=== PATIENT | male | born 1945 | race Caucasian/White ===

== ENCOUNTER 2022-05-15 21:58 | Emergency (ER) | payer MEDICARE, OTHER ==
[~2022-05-15] VITALS: Ht 177 cm; Wt 95.0 kg
--- NOTE | 2022-05-15 22:06 | ED General ---
General Chief Complaint: Abdominal/GI Problems Stated Complaint: SYNCOPE Source of Information: Patient, EMS History of Present Illness Date Seen by Provider: May 15, 2022 Time Seen by Provider: 21:58 Initial Comments 76-year-old male presenting with EMS from home. He had eaten at [employer] and after getting home the had abdominal pain with nausea and vomiting. He had a vasovagal response when he was in the bathroom and feels like he had a syncopal episode. He is diaphoretic and having continued nausea and vomiting. He states he has had prior abdominal surgery for an appendectomy. He still has gallbladder. He denies having symptoms like this previously. He was given IV fluid and Zofran by EMS but was still vomiting on arrival to the ED. He reports having Covid a month ago but was over all of his symptoms. Timing/Duration: 1/2 Hour Severity: Severe Modifying Factors: worse with Eating; improves with Medication; worse with Movement Associated Systoms: No Chest Pain, No Cough; Diaphoresis; No Fever/Chills, No Headaches, No Loss of Appetite; Nausea/Vomiting; No Seizure, No Shortness of Air; Syncope (vasovagal response while vomiting) Allergies and Home Medications Allergies Coded Allergies: codeine (Verified Allergy, Unknown, 05/15/22) morphine (Verified Allergy, Unknown, 05/15/22) Patient Home Medication List Home Medication List Reviewed: Yes Review of Systems Review of Systems Constitutional: No chills; diaphoresis, dizziness; No fever; malaise, weakness EENTM: no symptoms reported Respiratory: no symptoms reported Cardiovascular: no symptoms reported Gastrointestinal: see HPI Genitourinary: no symptoms reported Musculoskeletal: no symptoms reported Skin: no symptoms reported Psychiatric/Neurological: See HPI Hematologic/Lymphatic: Denies Easy Bleeding, Denies Easy Bruising Immunological/Allergic: no symptoms reported Past Utlyouk-Lfjubp-Oncals Hx Patient Social History Tobacco Use?: No Substance use?: No Alcohol Use?: No Past Medical History Surgery/Hospitalization HX: Hx of cardiac ablation due to Atrial Fibrillation, Appendectomy Surgeries: Yes Appendectomy, Cardiac Physical Exam Vital Signs Vital Signs - First Documented Capillary Refill : Height, Weight, BMI Height: '" Weight: lbs. oz. kg; BMI Method: General Appearance: Anxious, Moderate Distress, Other (diaphoretic and actively vomiting on arrival to ED) Eyes: Bilateral Eye PERRL, Bilateral Eye EOMI HEENT: Pharynx Normal Neck: Full Range of Motion, Normal Inspection, Non Tender, Supple Respiratory: Chest Non Tender, Lungs Clear, Normal Breath Sounds, No Accessory Muscle Use, No Respiratory Distress Cardiovascular: Normal Peripheral Pulses, Bradycardia Gastrointestinal: No Pulsatile Mass, Soft, Abnormal Bowel Sounds (hypoactive bowel sounds), Distended; No Guarding, No Rebound; Tenderness (epigastric and RUQ) Rectal: Deferred Back: No CVA Tenderness, No Vertebral Tenderness Extremity: Normal Capillary Refill, Normal Inspection, No Pedal Edema Neurologic/Psychiatric: Alert, Oriented x3, prenatal genetic counselor II-XII Norm as Tested Skin: Diaphoresis, Pallor Lymphatic: No Adenopathy Focused Exam Lactate Level 05/15/22 22:00: Lactic Acid Level 2.69*H Lactic Acid Level Laboratory Tests Test 05/15/22 22:00 Lactic Acid Level 2.69 MMOL/L (0.50-2.00) *H Progress/Results/Core Measures Suspected Sepsis SIRS Temperature: Pulse: Respiratory Rate: Laboratory Tests 05/15/22 22:00: White Blood Count 10.1 Blood Pressure / Mean: 05/15/22 22:00: Lactic Acid Level 2.69*H Laboratory Tests 05/15/22 22:00: Creatinine 0.93, Platelet Count 182, Total Bilirubin 0.2 Results/Orders Lab Results Laboratory Tests Test 05/15/22 22:00 05/16/22 00:17 05/16/22 02:07 Range/Units White Blood Count 10.1 4.3-11.0 10^3/uL Red Blood Count 3.88 L 4.30-5.52 10^6/uL Hemoglobin 12.0 L 13.3-17.7 g/dL Hematocrit 35 L 40-54 % Mean Corpuscular Volume 90 80-99 fL Mean Corpuscular Hemoglobin 31 25-34 pg Mean Corpuscular Hemoglobin Concent 34 32-36 g/dL Red Cell Distribution Width 12.8 10.0-14.5 % Platelet Count 182 130-400 10^3/uL Mean Platelet Volume 10.0 9.0-12.2 fL Immature Granulocyte % (Auto) 0 % Neutrophils (%) (Auto) 39 L 42-75 % Lymphocytes (%) (Auto) 50 H 12-44 % Monocytes (%) (Auto) 8 0-12 % Eosinophils (%) (Auto) 2 0-10 % Basophils (%) (Auto) 1 0-10 % Neutrophils # (Auto) 3.9 1.8-7.8 10^3/uL Lymphocytes # (Auto) 5.1 H 1.0-4.0 10^3/uL Monocytes # (Auto) 0.8 0.0-1.0 10^3/uL Eosinophils # (Auto) 0.2 0.0-0.3 10^3/uL Basophils # (Auto) 0.1 0.0-0.1 10^3/uL Immature Granulocyte # (Auto) 0.0 0.0-0.1 10^3/uL Sodium Level 142 135-145 MMOL/L Potassium Level 3.5 L 3.6-5.0 MMOL/L Chloride Level 111 H 98-107 MMOL/L Carbon Dioxide Level 21 21-32 MMOL/L Anion Gap 10 5-14 MMOL/L Blood Urea Nitrogen 12 7-18 MG/DL Creatinine 0.93 0.60-1.30 MG/DL Estimat Glomerular Filtration Rate 85 BUN/Creatinine Ratio 13 Glucose Level 129 H 70-105 MG/DL Lactic Acid Level 2.69 *H 0.50-2.00 MMOL/L Calcium Level 8.1 L 8.5-10.1 MG/DL Corrected Calcium 8.5 8.5-10.1 MG/DL Total Bilirubin 0.2 0.1-1.0 MG/DL Aspartate Amino Transf (AST/SGOT) 18 5-34 U/L Alanine Aminotransferase (ALT/SGPT) 16 0-55 U/L Alkaline Phosphatase 78 40-136 U/L Troponin I < 0.30 <0.30 NG/ML Pro-B-Type Natriuretic Peptide 81.9 <450.0 PG/ML Total Protein 5.7 L 6.4-8.2 GM/DL Albumin 3.5 3.2-4.5 GM/DL Lipase 28 8-78 U/L Urine Color YELLOW Urine Clarity CLEAR Urine pH 7.0 5-9 Urine Specific [place] <=1.005 1.016-1.022 Urine Protein NEGATIVE NEGATIVE Urine Glucose (UA) NEGATIVE NEGATIVE Urine Ketones NEGATIVE NEGATIVE Urine Nitrite NEGATIVE NEGATIVE Urine Bilirubin NEGATIVE NEGATIVE Urine Urobilinogen 0.2 < = 1.0 MG/DL Urine Leukocyte Esterase NEGATIVE NEGATIVE Urine RBC (Auto) NEGATIVE NEGATIVE Urine RBC NONE /HPF Urine WBC RARE /HPF Urine Squamous Epithelial Cells NONE /HPF Urine Crystals NONE /LPF Urine Bacteria TRACE /HPF Urine Casts NONE /LPF Urine Mucus NEGATIVE /LPF Urine Culture Indicated NO Influenza Type A (RT-PCR) Not Detected Not Detecte Influenza Type B (RT-PCR) Not Detected Not Detecte SARS-CoV-2 RNA (RT-PCR) Not Detected Not Detecte My Orders Orders - LATRICE GOODE MD Comprehensive Metabolic Panel (05/15/22 22:04) Lipase (05/15/22 22:04) Ua Culture If Indicated (05/15/22:04) Ed Iv/Invasive Line Start (05/15/22:) Cbc With Automated Diff (05/15/22 22:04) Ct Abdomen/Pelvis Wo (05/15/22 22:04) Ekg Tracing (05/15/22:) Monitor-Rhythm Ecg Trace Only (05/15/22:) Troponin I Fs (05/15/22 22:04) Probnp Fs (05/15/22:04) Lactic Acid Analyzer (05/15/22 22:04) Ns Iv 1000 Ml (Sodium Chloride 0.9%) (05/15/22 22:13) Metoclopramide Injection (Reglan Injecti (05/15/22 22:13) Pantoprazole Injection (Protonix Injecti (05/15/22 22:13) Diphenhydramine Injection (Benadryl Inje (05/15/22 22:13) Ct Angio Abdomen/Pelv W (05/15/22 22:36) Iohexol Injection (Omnipaque 350 Mg/Ml 1 (05/15/22 23:00) Received Contrast (Hold Metformin- Contr (05/15/22 23:00) Ns (Ivpb) (Sodium Chloride 0.9% Ivpb Bag (05/15/22 23:00) Covid 19 Inhouse Test (05/16/22 02:17) Influenza A And B By Pcr (05/16/22 02:17) Lactated Ringers (Lr 1000 Ml Iv Solution (05/16/22 03:45) Cbc With Automated Diff (05/16/22 04:46) Medications Given in ED Current Medications Medications Dose Ordered Sig/Claire Route Start Time Stop Time Status Last Admin Dose Admin Iohexol 125 ml ONCE ONCE IV 05/15/22 23:00 05/15/22 23:01 DC 05/15/22 22:51 125 ML Sodium Chloride 100 ml ONCE ONCE IV 05/15/22 23:00 05/15/22 23:01 DC 05/15/22 22:52 100 ML Vital Signs/I&O 05/15/22 05/15/22 05/15/22 21:58 21:58 22:25 Temp 36.4 36.4 Pulse 58 58 61 Resp 20 18 21 B/P (MAP) 118/60 (79) 118/60 120/62 Pulse Ox 97 97 98 O2 Delivery Room Air Room Air Room Air 05/16/22 00:00 Intake Total 1800 ml Balance 1800 ml Capillary Refill : Progress Note #1: Progress Note Check ECG, labs, urine. CT scan of abdomen/pelvis to evaluate for obstruction, diverticulitis, colitis, Cholecystitis. Normal saline 1 L IV fluid for hydration in addition to the liter received by EMS. Since he was still having vomiting after Zofran we will try giving Reglan 5 mg IV, Benadryl 12.5 mg IV, Protonix 40 mg IV. Progress Note #2: Progress Note Electrocardiogram shows sinus bradycardia. There is no acute ST elevation. His labs show no acute significant abnormality on his CBC or chemistry. His lactic acid was negative. I did receive a call at [phone] Jimenez with radiology. He advised me that the CT scan without contrast that showed intra-abdominal fluid concerning for bleeding. There is a mass versus blood in his belly. He recommended obtaining a CT angiogram of the abdomen and pelvis with delayed images to see if he is having contrast going into his abdomen for an acute bleed from mesentery or if he has a mass that is bleeding. Updated patient and spouse. He states that his primary care provider is Dr. Silvio Sylvester in [place] and he would prefer to be admitted in [place] if he had to go see a surgeon. I advised them that if he needs a general surgeon emergently I would see about contacting Dr. YEPEZ in [place] but if he needs a vascular specialist surgeon I would call up to [place]. Progress Note #3: Progress Note 8822 d/w Dr. Yepez about findings of hemoperitoneum and mass next to ascending colon. Awaiting radiology reading of the CT angiogram. Pt remains hemodynamically stable. He recommends repeat Hgb/Hct and if stable and no sign of active intra abdominal bleeding on CT angiogram could see about getting him back up to area to be closer to home and family as pt and spouse requested. As he did not have an elevated white blood cell count or fever the lactic acid was not repeated but it was slightly elevated to 2.69. It was felt this was due to stress and his nausea and vomiting. 0008 Internet access went down and unable to access pt chart or information 0139 Internet access available again and [facility] back up. CT Angiogram from [facility] read out as enhancing soft tissue mass lateral aspect of the right colon with multiple associated abnormal dilated arterial and venous vessels. 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 No active contrast extravasation to indicate active bleeding at time of examination. Redemonstrated hemoperitoneum. In the interim the CBC had been repeated and his hemoglobin went from 12-13.3. His white blood cell count went from 10 and 15.6. Urinalysis showed rare white blood cells and trace bacteria. He had no nitrites, leukocyte esterase, blood, red blood cells. Since his CT angiogram demonstrates the hemoperitoneum was associated with AV malformation or vascular neoplasm will see about admission to the hospital with vascular surgeon. Per family's request with him living in [place] will contact [facility] since his primary care provider Dr. Silvio Sylvester [facility] and [facility]. Progress Note #4: Progress Note 0148 updated patient and spouse about CT angiogram findings. With him having the hemoperitoneum and a vascular mass in his right lower quadrant will contact facility in [place] about transfer for access to a vascular surgeon since there is not one locally. 0202 BREANN Garcia, from [facility] access center was contacted and she advised that the [facility] facilities [facility] and [facility] were both on diversion. [facility] and [facility] were open and would have vascular surgery. When asking the patient and spouse the did not want to go to a [place] hospital if they could stay in [place]. They requested I check with [facility] and/or [facility]. 0215 discussed with BREANN Johnston, nursing supervisor instrument repair at [facility]. She stated that they did not have vascular surgery available. 0223 spoke with BREANN Vega, at [facility]. She took the basic information and will have the transfer physician, Dr. Vinnie López, call me back. In the meantime a COVID swab was obtained since the facilities in [place] were requesting an updated test despite the patient having recently gotten over COVID from March 20, 2022. 023 Dr. Vinnie López called back from [facility] and stated that they did not have any beds available anywhere within the [facility] system currently. 0234 call placed to [facility] transfer center. I spoke with BREANN Jacinto, and she took information about the patient. She will contact the providers and get back with me about whether the patient could be accepted there or not Progress Note #5: Progress Note 0323 I called to check back with BREANN Jacinto, at [facility] transfer center. She advised that she was still working on the case but they had an emergent patient transfer that came through after I called earlier so they had to manage that patient first. They will call back once they have heard from the staff doctor. Progress Note #6: Progress Note 0438 BREANN Jacinto, called back from [facility] transfer chase and pt is accepted under Dr. Stanislaw Beasley. Will call back with room assignment. ECG Initial ECG Impression Date: May 15, 2022 Initial ECG Impression Time: 22:00 Initial ECG Rate: 54 Initial ECG Rhythm: S.Ant Initial ECG Comparisson: No Previous ECG Available Comment Normal sinus bradycardia with a heart rate of 54 bpm. AR interval [address] elevation. QT interval 475 ms with a QTc interval 466 ms. He does have prolonged QT interval. There is no prior tracing available for comparison. Diagnostic Imaging Diagonstic Imaging: CT Plain Films/CT/US/NM/MRI: abdomen, pelvis Comments NAME: PHUONG WHALEN MED REC#: [id number] PT STATUS: REG ER : 1945 PHYSICIAN: LATRICE GOODE MD ADMIT DATE: 05/15/22/ER FS Signed Date of Exam:05/15/22 CT ABDOMEN/PELVIS WO PROCEDURE: CT abdomen and pelvis without contrast. TECHNIQUE: Multiple contiguous axial images were obtained through the abdomen and pelvis without the use of intravenous contrast. Auto Exposure Controls were utilized during the CT exam to meet ALARA standards for radiation dose reduction. INDICATION: Postprandial nausea and vomiting. FINDINGS: There is hyperdense intraperitoneal free fluid in the right upper quadrant perihepatic and extending along the right colic gutter into the upper pelvis at the midline. Its appearance and density are suspicious for a hemoperitoneum. Lateral to the medially displaced ascending colon is a heterogeneous mass effect measuring 5.8 x 6.1 cm in the axial plane x 6.5 cm cephalocaudal. This could be hemorrhagic tumor and the source of the blood or itself reflect a sentinel mesenteric hematoma. Dynamic and delayed postcontrast enhanced abdominopelvic CT recommended to exclude active extravasation and to further evaluate this focal abnormality. There is no bowel obstruction. Liver, gallbladder, spleen, adrenals and pancreas are all unremarkable. The unobstructed kidneys nonacute. The aorta is nonaneurysmal. Prostate, seminal vesicles and urinary bladder are unremarkable. The osseous structures of the abdomen and pelvis nonacute. The lung bases unremarkable. IMPRESSION: 1. Perihepatic and right colic gutter as well as pelvic hyperdense complex free fluid worrisome for hemoperitoneum. Along the right colic gutter lateral to the proximal colon is a heterogeneous mass effect which may reflect a sentinel mesenteric hematoma or a tumor. Arterial phased and delayed postcontrast enhanced CT abdomen and pelvis recommended as further evaluation to better characterize this lesion as well as to exclude active bleeding. 2. The remaining unopacified solid and hollow viscus unremarkable. Critical findings discussed with the Emergency Room physician. Dictated by: Dictated on workstation # [id number] Dict: 05/15/222227 Trans: 05/15/222320 [facility] [id number] Interpreted by: ALIYA JIMENEZ Electronically signed by: ALIYA JIMENEZ 05/15/222320 Reviewed: Reviewed by Nv Diagonstic Imaging: CT (Angiogram) Plain Films/CT/US/NM/MRI: abdomen, pelvis Comments CT angiogram of abdomen and pelvis with IV contrast shows avidly enhancing soft tissue mass lateral aspect of the right colon with multiple associated abnormal dilated arterial and venous vessels. 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 No active contrast extravasation to indicate active bleeding at time of examination. Redemonstrated hemoperitoneum. Read by radiologist Dr. Ganga Mon MD at [phone] and faxed at [phone]. Actually received at 0138 when internet access re-established. Reviewed: Reviewed Night [facility] Study Critical Care Note Critical Care Total Time (minutes) 90 minutes Progress 90 minutes of critical care time was spent in direct care of the patient. This time excludes separately billable procedures. Time was spent obtaining history from patient, spouse, EMS, ordering tests and reviewing results, ordering interventions and reviewing response, discussion with consultants, attempting to find appropriate placement for the patient, documentation in the chart, discussion with patient and family. Patient was at risk of hemodynamic collapse and recurrent bleeding into his abdomen. Due to this he required constant direct observation and treatment by self as well as continued monitoring of his vital signs and status. Departure Impression Primary Impression: Hemoperitoneum, nontraumatic Additional Impressions: Nausea and vomiting in adult Abdominal pressure Abdominal mass, right lower quadrant Disposition: 02 XFER SHT-TRM HOSP Condition: Critical Transfer Transfer Reason: Exceeds level of care (Requires vascular surgery and other hospitals were on Diversion) Time Spoke to Accepting Phy: 04:[address] Stanislaw Beasley is accepting physician for pt to come to [facility]. This is the closest facility that has capability with a vascular surgeon and bed capacity to take the patient. Transfer Facility: [facility] Method of Transfer: EMS Departure-Patient Inst. Referrals: NO,LOCAL PHYSICIAN (PCP/Family) Primary Care Physician LATRICE GOODE MD May 15, 2022 22:06
[2022-05-15 22:10] LABS: BASOPHILS # (AUTO) 0.1 10^3/uL (0.0-0.1); BASOPHILS % (AUTO) 1 % (0-10); EOSINOPHILS # (AUTO) 0.2 10^3/uL (0.0-0.3); EOSINOPHILS % (AUTO) 2 % (0-10); HEMATOCRIT 35 % (40-54); LYMPHOCYTES # (AUTO) 5.1 10^3/uL (1.0-4.0); LYMPHOCYTES % (AUTO) 50 % (12-44); MEAN CORPUSCULAR HEMOGLOBIN 31 pg (25-34); MEAN CORPUSCULAR HGB CONC 34 g/dL (32-36); MEAN CORPUSCULAR VOLUME 90 fL (80-99); MONOCYTES # (AUTO) 0.8 10^3/uL (0.0-1.0); MONOCYTES % (AUTO) 8 % (0-12); NEUTROPHILS # (AUTO) 3.9 10^3/uL (1.8-7.8); NEUTROPHILS % (AUTO) 39 % (42-75); PLATELET COUNT 182 10^3/uL (130-400); WHITE BLOOD COUNT 10.1 10^3/uL (4.3-11.0)
[2022-05-15] MEDS ORDERED: NS IV 1000 ML 1,000 ML IV STA (22:13)
[2022-05-15] MEDS ORDERED: METOCLOPRAMIDE INJ 10 MG/2 ML (REGLAN) IVP STA (22:13)
[2022-05-15] MEDS ORDERED: diphenhydrAMINE 50 MG/ML INJ (BENADRYL) IVP STA (22:13)
[2022-05-15] MEDS ORDERED: PANTOPRAZOLE 40 MG (PROTONIX) VIAL IV STA (22:13)
[2022-05-15 22:30] LABS: BILIRUBIN,TOTAL 0.2 MG/DL (0.1-1.0); CALCIUM 8.1 MG/DL (8.5-10.1); CREATININE SERUM 0.93 MG/DL (0.60-1.30); POTASSIUM 3.5 MMOL/L (3.6-5.0)
[2022-05-15 22:42] LABS: ALBUMIN 3.5 GM/DL (3.2-4.5); TOTAL PROTEIN 5.7 GM/DL (6.4-8.2)
--- NOTE | 2022-05-15 22:57 | Diagnostic Imaging Report ---
PROCEDURE: CT abdomen and pelvis without contrast. TECHNIQUE: Multiple contiguous axial images were obtained through the abdomen and pelvis without the use of intravenous contrast. Auto Exposure Controls were utilized during the CT exam to meet ALARA standards for radiation dose reduction. INDICATION: Postprandial nausea and vomiting. FINDINGS: There is hyperdense intraperitoneal free fluid in the right upper quadrant perihepatic and extending along the right colic gutter into the upper pelvis at the midline. Its appearance and density are suspicious for a hemoperitoneum. Lateral to the medially displaced ascending colon is a heterogeneous mass effect measuring 5.8 x 6.1 cm in the axial plane x 6.5 cm cephalocaudal. This could be hemorrhagic tumor and the source of the blood or itself reflect a sentinel mesenteric hematoma. Dynamic and delayed postcontrast enhanced abdominopelvic CT recommended to exclude active extravasation and to further evaluate this focal abnormality. There is no bowel obstruction. Liver, gallbladder, spleen, adrenals and pancreas are all unremarkable. The unobstructed kidneys nonacute. The aorta is nonaneurysmal. Prostate, seminal vesicles and urinary bladder are unremarkable. The osseous structures of the abdomen and pelvis nonacute. The lung bases unremarkable. IMPRESSION: 1. Perihepatic and right colic gutter as well as pelvic hyperdense complex free fluid worrisome for hemoperitoneum. Along the right colic gutter lateral to the proximal colon is a heterogeneous mass effect which may reflect a sentinel mesenteric hematoma or a tumor. Arterial phased and delayed postcontrast enhanced CT abdomen and pelvis recommended as further evaluation to better characterize this lesion as well as to exclude active bleeding. 2. The remaining unopacified solid and hollow viscus unremarkable. Critical findings discussed with the Emergency Room physician. Dictated by: Dictated on workstation # [id number]
[2022-05-15] MEDS ORDERED: IOHEXOL 350 MG/ML 150 ML (OMNIPAQUE 350) VIAL IV ONE (23:00)
[2022-05-15] MEDS ORDERED: HOLD METFORMIN - RECEIVED CONTRAST 20 ML VIAL IV SCH (23:00)
[2022-05-15] MEDS ORDERED: NS 100 ML (IVPB) BAG IV ONE (23:00)
[2022-05-16 02:22] LABS: CLARITY,URINE CLEAR; COLOR,URINE YELLOW; PROTEIN,URINE NEGATIVE (NEGATIVE)
[2022-05-16 02:23] LABS: BACTERIA,URINE TRACE /HPF; BILIRUBIN,URINE NEGATIVE (NEGATIVE); GLUCOSE, URINE (UA) NEGATIVE (NEGATIVE); KETONES,URINE NEGATIVE (NEGATIVE); LEUKOCYTE ESTERASE ,URINE NEGATIVE (NEGATIVE); NITRITE,URINE NEGATIVE (NEGATIVE); WBC,URINE RARE /HPF
[2022-05-16] MEDS ORDERED: LACTATED RINGERS 1,000 ML IV SCH (03:45)
[2022-05-16 05:16] VITALS: BP 126/74
--- NOTE | 2022-05-16 06:13 | Diagnostic Imaging Report ---
PROCEDURE: CT Angio Abdomen/Pelvis with. TECHNIQUE: Multiple contiguous axial images were obtained through the abdomen and pelvis after the uneventful bolus administration of intravenous contrast. Sagittal and coronal MIP reconstructions with then performed. All CT scans use one or more of the following dose optimizing techniques: automated exposure control, MA and/or KvP adjustment based on patient size and exam type or iterative reconstruction. INDICATION: Nausea, vomiting, mass COMPARISON: Imaging from the same date. FINDINGS: Dependent bibasilar scarring and/or atelectasis. No significant pericardial effusion within the [id number]. The liver and spleen are unremarkable. The adrenal glands are unremarkable. The pancreas is unremarkable. The gallbladder is unremarkable. The kidneys are unremarkable. No aneurysm or dissection of the abdominal aorta. A 7.6 x 6.4 x 6.3 cm heterogeneous enhancing mass lesion is identified within the right abdomen abutting the lateral aspect of the ascending colon. This does demonstrate significant internal enhancement with associated nonenhancing cystic regions. This mass is associated with several tortuous vessels and likely drains via collaterals from the superior mesenteric vein. Significant amount of adjacent mildly hyperdense free fluid is again identified extending up the right paracolic gutter. The prostate gland is enlarged. The urinary bladder is unremarkable. No bowel obstruction. Small fat-containing umbilical hernia. No significant adenopathy or free air. Scattered osseous degenerative changes without acute osseous abnormality. IMPRESSION: Heterogeneously enhancing soft tissue mass within the right abdomen abutting the ascending colon as described above. Given appearance, this may relate to an arterial venous malformation. A hypervascular neoplasm would be an additional consideration. No definitive evidence of active extravasation at this time. Hemoperitoneum, appearing similar to the prior examination. Additional findings as above. Agree with preliminary interpretation. Dictated by: Dictated on workstation # [id number]
== END 2022-05-16 05:16 | disposition short-term general hospital (02) ==
LOC: ER FS 22:05
DX: K66.1 Hemoperitoneum (principal); Z28.310 Unvaccinated for COVID-19
CPT/HCPCS: 36415; 74174; 74176; 80053; 81000; 83605; 83690; 83880; 84484; 85025; 87636; 93005; 93041; Q9967

== ENCOUNTER 2022-05-28 21:10 | Emergency (ER) | payer MEDICARE ==
--- NOTE | 2022-05-28 21:37 | ED Abdominal Pain ---
General Chief Complaint: Abdominal/GI Problems Stated Complaint: GENERAL PROBLEMS Nursing Triage Note: Pt complaining of lower abd pain tonight. Pt had part of his bowel removed on 05/18/22 at [facility] History of Present Illness Date Seen by Provider: May 28, 2022 Time Seen by Provider: 21:33 Initial Comments 76-year-old male here with complaints of abdominal pain. Patient is about 2 to 2-1/2-week status post right hemicolectomy due to a mass. Patient has follow-up this coming week with the surgeon. Patient states today he was eating foods and having buildup of pressure and pain. He could not get the gas out but then had some loose bowel movements and the gas came out and it did feel better. Patient still having lower abdominal pain. No fever. Did have some nausea and felt like his got a pass out but that has improved since he did express the gas. No vomiting. No chest pain shortness of breath. The day after he recently was released after having the surgery he ended up going back and he had ileus and they pulled out about 2 L of bilious stomach contents. Patient is back to eating now and did eat some [employer] pizza today. Allergies and Home Medications Allergies Coded Allergies: codeine (Verified Allergy, Unknown, 05/15/22) morphine (Verified Allergy, Unknown, 05/15/22) Patient Home Medication List Home Medication List Reviewed: Yes Review of Systems Review of Systems Constitutional: see HPI Past [id number]-Vpybjb Hx Patient Social History Tobacco Use?: No Use of E-Cig and/or Vaping dev: No Substance use?: No Alcohol Use?: No Pt feels they are or have been: No Past Medical History Surgery/Hospitalization HX: Hx of cardiac ablation due to Atrial Fibrillation, Appendectomy Surgeries: Yes Appendectomy, Cardiac Physical Exam Vital Signs Vital Signs - First Documented 05/28/22 21:12 Temp 37.4 Pulse 94 Resp 16 B/P (MAP) 137/51 (79) Pulse Ox 94 O2 Delivery Room Air Capillary Refill : Less Than 3 Seconds Height/Weight/BMI Height: '" Weight: lbs. oz. kg; 30.00 BMI Method: General Appearance: WD/WN, no apparent distress HEENT: PERRL/EOMI Neck: non-tender, supple Respiratory: lungs clear, normal breath sounds Cardiovascular: regular rate, rhythm, no edema, no murmur Gastrointestinal: normal bowel sounds, soft, tenderness; No mass, No hepatomegaly; other (incision with kimberli noted on abdomen. no signs of in fection in incision) Neurologic/Psychiatric: alert, normal mood/affect Skin: normal color, warm/dry Focused Exam Lactate Level 05/28/22 21:20: Lactic Acid Level 1.60 Lactic Acid Level Laboratory Tests Test 05/28/22 21:20 Lactic Acid Level 1.60 MMOL/L (0.50-2.00) Progress/Results/Core Measures Results/Orders Lab Results Laboratory Tests Test 05/28/22 21:20 Range/Units White Blood Count 10.6 4.3-11.0 10^3/uL Red Blood Count 3.92 L 4.30-5.52 10^6/uL Hemoglobin 12.1 L 13.3-17.7 g/dL Hematocrit 36 L 40-54 % Mean Corpuscular Volume 93 80-99 fL Mean Corpuscular Hemoglobin 31 25-34 pg Mean Corpuscular Hemoglobin Concent 33 32-36 g/dL Red Cell Distribution Width 14.0 10.0-14.5 % Platelet Count 299 130-400 10^3/uL Mean Platelet Volume 9.5 9.0-12.2 fL Immature Granulocyte % (Auto) 0 % Neutrophils (%) (Auto) 90 H 42-75 % Lymphocytes (%) (Auto) 4 L 12-44 % Monocytes (%) (Auto) 6 0-12 % Eosinophils (%) (Auto) 0 0-10 % Basophils (%) (Auto) 0 0-10 % Neutrophils # (Auto) 9.5 H 1.8-7.8 10^3/uL Lymphocytes # (Auto) 0.4 L 1.0-4.0 10^3/uL Monocytes # (Auto) 0.6 0.0-1.0 10^3/uL Eosinophils # (Auto) 0.0 0.0-0.3 10^3/uL Basophils # (Auto) 0.0 0.0-0.1 10^3/uL Immature Granulocyte # (Auto) 0.0 0.0-0.1 10^3/uL Neutrophils % (Manual) 94 % Lymphocytes % (Manual) 3 % Monocytes % (Manual) 3 % Sodium Level 144 135-145 MMOL/L Potassium Level 3.8 3.6-5.0 MMOL/L Chloride Level 107 98-107 MMOL/L Carbon Dioxide Level 26 21-32 MMOL/L Anion Gap 11 5-14 MMOL/L Blood Urea Nitrogen 11 7-18 MG/DL Creatinine 0.94 0.60-1.30 MG/DL Estimat Glomerular Filtration Rate 84 BUN/Creatinine Ratio 12 Glucose Level 142 H 70-105 MG/DL Lactic Acid Level 1.60 0.50-2.00 MMOL/L Calcium Level 9.4 8.5-10.1 MG/DL Corrected Calcium 9.2 8.5-10.1 MG/DL Total Bilirubin 0.4 0.1-1.0 MG/DL Aspartate Amino Transf (AST/SGOT) 38 H 5-34 U/L Alanine Aminotransferase (ALT/SGPT) 47 0-55 U/L Alkaline Phosphatase 73 40-136 U/L Total Protein 6.8 6.4-8.2 GM/DL Albumin 4.2 3.2-4.5 GM/DL Lipase 32 8-78 U/L My Orders Orders - DOLLY GARCIA MD Ct Abdomen/Pelvis W (05/28/22 21:33) Cbc And Manual Diff (05/28/22 21:33) Comprehensive Metabolic Panel (05/28/22 21:33) Lactic Acid Analyzer (05/28/22 21:33) Lipase (05/28/22 21:33) Ed Iv/Invasive Line Start (05/28/22 21:37) Iohexol Injection (Omnipaque 350 Mg/Ml 1 (05/28/22 21:45) Received Contrast (Hold Metformin- Contr (05/28/22 21:45) Ns (Ivpb) (Sodium Chloride 0.9% Ivpb Bag (05/28/22 21:45) Ns Iv 1000 Ml (Sodium Chloride 0.9%) (05/28/22 22:30) Ns Iv 1000 Ml (Sodium Chloride 0.9%) (05/28/22 22:23) Ns Iv 1000 Ml (Sodium Chloride 0.9%) (05/28/22 22:45) Ng Tube Insert & Assessment (05/28/22 23:30) Medications Given in ED Current Medications Medications Dose Ordered Sig/Claire Route Start Time Stop Time Status Last Admin Dose Admin Iohexol 100 ml ONCE ONCE IV 05/28/22 21:45 05/28/22 21:46 DC 05/28/22 21:49 100 ML Sodium Chloride 100 ml ONCE ONCE IV 05/28/22 21:45 05/28/22 21:46 DC 05/28/22 21:49 100 ML Sodium Chloride 1,000 ml @ 100 mls/hr Q10H ONCE IV 05/28/22 22:30 05/28/22 22:34 DC 05/28/22 22:26 100 MLS/HR Vital Signs/I&O 05/28/22 21:12 Temp 37.4 Pulse 94 Resp 16 B/P (MAP) 137/51 (79) Pulse Ox 94 O2 Delivery Room Air Blood Pressure Mean: 79 CT Results/Progress Notes NAME: PHUONG WHALEN [facility] REC#: [id number] PT STATUS: REG ER : 1945 PHYSICIAN: DOLLY GARCIA MD ADMIT DATE: 05/28/22/ER FS Draft Date of Exam:05/28/22 CT ABDOMEN/PELVIS W PROCEDURE: CT abdomen and pelvis with contrast. TECHNIQUE: Multiple contiguous axial images were obtained through the abdomen and pelvis after administration of intravenous contrast. Auto Exposure Controls were utilized during the CT exam to meet ALARA standards for radiation dose reduction. All CT scans use one or more of the following dose optimizing techniques: automated exposure control, MA and/or KvP adjustment based on patient size and exam type or iterative reconstruction. INDICATION: Abdominal pain. Status post hemicolectomy. COMPARISON: Prior study from May 15, 2022. FINDINGS: The lung bases demonstrate dependent atelectasis without finding of pneumonia or edema. There is no significant pleural fluid or pericardial collection. The liver demonstrates no evidence of a focal intrahepatic abnormality. The hepatic veins and portal veins are patent. Gallbladder is not distended. There is no radiodense gallstone or findings of biliary dilatation. Pancreas is atrophic. The spleen is normal. There is no adrenal mass. The kidneys enhance normally and are nonobstructed. There are operative changes of a right-sided hemicolectomy. There appears to be a small bowel to transverse colon anastomosis. Note is made of uncomplicated sigmoid diverticulosis. There is diffuse small bowel dilation present but no finding of pneumatosis. There is moderate free fluid present throughout the abdomen and within the pelvis. There are no findings of free air. There is no identifiable encapsulated abscess. The prostate is markedly enlarged. The bladder is slightly thick walled. There is no abdominal or pelvic adenopathy. Aorta is normal in caliber. There is no acute osseous abnormality evident. IMPRESSION: 1. Interval operative changes of a right-sided hemicolectomy with small bowel to transverse colon anastomosis. There is diffuse fluid distention and mild dilation demonstrated about the small bowel that may reflect a partial small bowel obstruction or ileus. There is no finding of pneumatosis or portal venous gas. 2. There is moderate free fluid within the abdomen and pelvis but no finding of free air or evidence of an encapsulated abscess. Dictated on workstation # [id number] Dict: 05/28/222211 Trans: 05/28/222237 [facility] [id number] Interpreted by: ALVIN HERNDON MD Electronically signed by: Departure Impression Primary Impression: SBO (small bowel obstruction) Disposition: 02 XFER SHT-TRM HOSP Condition: Stable/Unchanged Transfer Transfer Reason: Exceeds level of care Time Spoke to Accepting Phy: 23:45 Transfer Progress Notes Spoke to the transfer team initially at 2303 Shabnam Spoke to transfer team at [address] Garcia Rossi will transfer per EMS Transfer Facility: [facility] Method of Transfer: EMS Departure-Patient Inst. Referrals: NO,LOCAL PHYSICIAN (PCP/Family) Primary Care Physician Patient Instructions: Small Bowel Obstruction (DC) Add. Discharge Instructions: follow up with primary care and surgeon after discharge All discharge instructions reviewed with patient and/or family. Voiced understanding. DOLLY GARCIA MD May 28, 2022 21:37
[2022-05-28 21:39] LABS: BASOPHILS % (AUTO) 0 % (0-10); EOSINOPHILS % (AUTO) 0 % (0-10); HEMATOCRIT 36 % (40-54); HEMOGLOBIN 12.1 g/dL (13.3-17.7); LYMPHOCYTES # (AUTO) 0.4 10^3/uL (1.0-4.0); LYMPHOCYTES % (AUTO) 4 % (12-44); MEAN CORPUSCULAR HEMOGLOBIN 31 pg (25-34); MEAN CORPUSCULAR HGB CONC 33 g/dL (32-36); MEAN CORPUSCULAR VOLUME 93 fL (80-99); MEAN PLATELET VOLUME 9.5 fL (9.0-12.2); MONOCYTES # (AUTO) 0.6 10^3/uL (0.0-1.0); MONOCYTES % (AUTO) 6 % (0-12); NEUTROPHILS # (AUTO) 9.5 10^3/uL (1.8-7.8); NEUTROPHILS % (AUTO) 90 % (42-75); PLATELET COUNT 299 10^3/uL (130-400); WHITE BLOOD COUNT 10.6 10^3/uL (4.3-11.0)
[2022-05-28] MEDS ORDERED: IOHEXOL 350 MG/ML 100 ML (OMNIPAQUE 350) VIAL IV ONE (21:45)
[2022-05-28] MEDS ORDERED: HOLD METFORMIN - RECEIVED CONTRAST 20 ML VIAL IV SCH (21:45)
[2022-05-28] MEDS ORDERED: NS 100 ML (IVPB) BAG IV ONE (21:45)
[2022-05-28 21:51] LABS: ALBUMIN 4.2 GM/DL (3.2-4.5); BILIRUBIN,TOTAL 0.4 MG/DL (0.1-1.0); CALCIUM 9.4 MG/DL (8.5-10.1); CREATININE SERUM 0.94 MG/DL (0.60-1.30); POTASSIUM 3.8 MMOL/L (3.6-5.0); TOTAL PROTEIN 6.8 GM/DL (6.4-8.2)
[2022-05-28 21:55] LABS: LYMPHOCYTES % (MANUAL) 3 %; MONOCYTES % (MANUAL) 3 %; NEUTROPHILS % (MANUAL) 94 %
[2022-05-28] MEDS ORDERED: NS IV 1000 ML 1,000 ML ONE (22:23)
[2022-05-28] MEDS ORDERED: NS IV 1000 ML 1,000 ML IV ONE (22:30)
[2022-05-28] MEDS: NS IV 1000 ML 1,000 ML IV SCH ×2 (22:37→23:35)
--- NOTE | 2022-05-28 22:40 | Diagnostic Imaging Report ---
PROCEDURE: CT abdomen and pelvis with contrast. TECHNIQUE: Multiple contiguous axial images were obtained through the abdomen and pelvis after administration of intravenous contrast. Auto Exposure Controls were utilized during the CT exam to meet ALARA standards for radiation dose reduction. All CT scans use one or more of the following dose optimizing techniques: automated exposure control, MA and/or KvP adjustment based on patient size and exam type or iterative reconstruction. INDICATION: Abdominal pain. Status post hemicolectomy. COMPARISON: Prior study from May 15, 2022. FINDINGS: The lung bases demonstrate dependent atelectasis without finding of pneumonia or edema. There is no significant pleural fluid or pericardial collection. The liver demonstrates no evidence of a focal intrahepatic abnormality. The hepatic veins and portal veins are patent. Gallbladder is not distended. There is no radiodense gallstone or findings of biliary dilatation. Pancreas is atrophic. The spleen is normal. There is no adrenal mass. The kidneys enhance normally and are nonobstructed. There are operative changes of a right-sided hemicolectomy. There appears to be a small bowel to transverse colon anastomosis. Note is made of uncomplicated sigmoid diverticulosis. There is diffuse small bowel dilation present but no finding of pneumatosis. There is moderate free fluid present throughout the abdomen and within the pelvis. There are no findings of free air. There is no identifiable encapsulated abscess. The prostate is markedly enlarged. The bladder is slightly thick walled. There is no abdominal or pelvic adenopathy. Aorta is normal in caliber. There is no acute osseous abnormality evident. IMPRESSION: 1. Interval operative changes of a right-sided hemicolectomy with small bowel to transverse colon anastomosis. There is diffuse fluid distention and mild dilation demonstrated about the small bowel that may reflect a partial small bowel obstruction or ileus. There is no finding of pneumatosis or portal venous gas. 2. There is moderate free fluid within the abdomen and pelvis but no finding of free air or evidence of an encapsulated abscess. Dictated by: Dictated on workstation # [id number]
[2022-05-29 00:21] VITALS: BP 144/67
== END 2022-05-29 01:10 | disposition short-term general hospital (02) ==
LOC: EDUNIT# 21:10 → ER FS 21:14
DX: K56.609 Unspecified intestinal obstruction, unspecified as to partial versus complete obstruction (principal); Z90.49 Acquired absence of other specified parts of digestive tract
CPT/HCPCS: 36415; 74177; 80053; 83605; 83690; 85007; 85027; Q9967